=== PATIENT | female | born 1985 | race African-American/Black ===

== ENCOUNTER 2018-09-15 16:17 | Emergency (ER) | payer MEDICAID ==
[~2018-09-15] VITALS: Ht 170.2 cm; Wt 80.0 kg
[2018-09-15] MEDS ORDERED: MORPHINE SULFATE 10 MG/ML CPJ IM ONE (18:15)
[2018-09-15] MEDS ORDERED: ONDANSETRON HCL 4MG/2ML INJ IV STA (18:49)
[2018-09-15] MEDS ORDERED: KETOROLAC 30MG/ML VIAL IV STA (18:49)
[2018-09-15] MEDS ORDERED: SODIUM CHLORIDE 0.9% 1,000 ML IV ONE (18:49)
[2018-09-15] MEDS ORDERED: MORPHINE SULFATE 4 MG/ML CPJ (NOT FOR IM USE) IV STA (18:49)
[2018-09-15 19:27] LABS: BASOPHILS % 0.3 % (0.0-2.0); EOSINOPHILS % 0.1 % (0.0-5.0); HEMATOCRIT. 37.4 % (36.0-48.0); HEMOGLOBIN. 12.5 g/dL (12.0-16.0); LYMPHOCYTES % 15.6 % (20.0-50.0); MEAN CORPUSCULAR HEMOGLOBIN 29.3 pg (28.0-32.0); MEAN CORPUSCULAR VOLUME 87.9 fL (81.0-99.0); MEAN PLATELET VOLUME 7.9 fl (7.4-10.4); MONOCYTES % 6.1 % (2.0-8.0); NEUTROPHILS % 77.9 % (40.0-76.0); PLATELET 253 x1000/uL (130-400); RED BLOOD CELL COUNT 4.26 mill/uL (4.2-5.4); RED CELL DISTRIBUTION WIDTH 14.7 % (11.6-14.6)
[2018-09-15 19:33] LABS: CHLORIDE 107 mEq/L (98-107)
[2018-09-15 19:36] LABS: HCG SCREEN NEGATIVE
[2018-09-15 19:37] LABS: ETHANOL BLOOD < 10 mg/dL; PARTIAL THROMBOPLASTIN TIME 27.2 sec (23.4-31.0); PROTHROMBIN TIME 10.3 sec (9.1-11.1)
[2018-09-15] MEDS ORDERED: MORPHINE SULFATE 4 MG/ML CPJ (NOT FOR IM USE) IV ONE ×2 (21:15→21:45)
[2018-09-15] MEDS ORDERED: LORAZEPAM 2MG/ML CPJ IV ONE (21:15)
[2018-09-15] MEDS ORDERED: ONDANSETRON HCL 4MG/2ML INJ IV ONE (21:15)
[2018-09-15] MEDS ORDERED: TETANUS, DIPHTHERIA, PERTUSSIS VAC/PF 0.5ML (>7YR OLD) IM ONE (21:30)
[2018-09-15] MEDS ORDERED: BACITRACIN ZINC OINT UDPKT TOP ONE (21:30)
[2018-09-15] MEDS ORDERED: DIPHENHYDRAMINE 50MG/ML VIAL IV ONE (21:30)
[2018-09-15 22:09] VITALS: BP 131/73
== END 2018-09-15 23:29 | disposition home or self-care (01) ==
LOC: ER 16:17
DX: S83.004A Unspecified dislocation of right patella, initial encounter (principal); S89.81XA Other specified injuries of right lower leg, initial encounter; M25.561 Pain in right knee; F32.9 Major depressive disorder, single episode, unspecified; V00.831A Fall from motorized mobility scooter, initial encounter; Y93.89 Activity, other specified; Y92.9 Unspecified place or not applicable; Z90.710 Acquired absence of both cervix and uterus
CPT/HCPCS: 27560; 36415; 71045; 73552; 73560; 73590; 80053; 80320; 84703; 85025; 85610; 85730; 86850; 86900; 86901; 90471; 90715; 96372; 96374; 96375; 96376; 99284; J1200; J1885; J2060; J2270; J2405; J7030; L1830; Z7610; G0480

== ENCOUNTER 2019-07-05 21:58 | Emergency (ER) | payer MEDICAID ==
[~2019-07-05] VITALS: Ht 172.7 cm; Wt 81.0 kg
[2019-07-05] MEDS ORDERED: SODIUM CHLORIDE 0.9% 1,000 ML IV ONE (23:07)
[2019-07-05] MEDS ORDERED: ONDANSETRON HCL 4MG/2ML INJ IV STA (23:07)
[2019-07-05] MEDS ORDERED: MORPHINE SULFATE 2 MG/ML CPJ (NOT FOR IM USE) IV ONE (23:15)
[2019-07-05 23:57] LABS: BASOPHILS % 0.2 % (0.0-2.0); EOSINOPHILS % 1.7 % (0.0-5.0); HEMATOCRIT. 36.1 % (36.0-48.0); HEMOGLOBIN. 11.9 g/dL (12.0-16.0); LYMPHOCYTES % 29.6 % (20.0-50.0); MEAN CORPUSCULAR HEMOGLOBIN 27.6 pg (28.0-32.0); MEAN CORPUSCULAR VOLUME 83.5 fL (81.0-99.0); MEAN PLATELET VOLUME 8.5 fl (7.4-10.4); MONOCYTES % 9.2 % (2.0-8.0); NEUTROPHILS % 59.3 % (40.0-76.0); PLATELET 268 x1000/uL (130-400); RED BLOOD CELL COUNT 4.33 mill/uL (4.2-5.4); RED CELL DISTRIBUTION WIDTH 14.8 % (11.6-14.6)
[2019-07-06 00:02] LABS: CLARITY URINE CLEAR (CLEAR); COLOR URINE YELLOW (YELLOW); HCG SCREEN NEGATIVE; KETONES URINE NEGATIVE (NEGATIVE); LEUKOCYTE ESTERASE URINE NEGATIVE (NEGATIVE); NITRITE URINE NEGATIVE (NEGATIVE); OCCULT BLOOD URINE NEGATIVE (NEGATIVE); PROTEIN URINE NEGATIVE (NEGATIVE); SPECIFIC GRAVITY URINE 1.018 (1.005-1.030)
[2019-07-06 00:03] LABS: CHLORIDE 107 mEq/L (98-107)
[2019-07-06 02:24] VITALS: BP 118/73
== END 2019-07-06 02:40 | disposition home or self-care (01) ==
LOC: ER 21:58
DX: R10.9 Unspecified abdominal pain (principal); F32.9 Major depressive disorder, single episode, unspecified; J45.909 Unspecified asthma, uncomplicated; Z90.710 Acquired absence of both cervix and uterus
CPT/HCPCS: 36415; 74176; 80053; 81003; 83690; 84703; 85025; 96374; 96375; 99284; J2270; J2405; J7030

== ENCOUNTER 2024-07-15 15:26 | Emergency (ER) | payer MEDICAID, OTHER ==
[~2024-07-15] VITALS: Ht 165.1 cm; Wt 52.0 kg
[2024-07-15] MEDS: LACTATED RINGERS IV ONE (16:34)
[2024-07-15] MEDS: ONDANSETRON HCL 4MG/2ML INJ IV ONE (16:55)
[2024-07-15 17:31] LABS: BASOPHILS % 0.5 % (0.0-2.0); DIFFERENTIAL COMMENT 0; EOSINOPHILS % 0.4 % (0.0-5.0); HEMATOCRIT. 51.6 % (36.0-48.0); HEMOGLOBIN. 15.3 g/dL (12.0-16.0); LYMPHOCYTES % 13.4 % (20.0-50.0); MEAN CORPUSCULAR HEMOGLOBIN 28.1 pg (28.0-32.0); MEAN CORPUSCULAR HGB CONC 29.7 g/dL (31.0-37.0); MEAN CORPUSCULAR VOLUME 94.5 fL (81.0-99.0); MEAN PLATELET VOLUME 10.1 fl (7.4-10.4); MONOCYTES % 2.4 % (2.0-8.0); NEUTROPHILS % 83.3 % (40.0-76.0); PLATELET 273 x1000/uL (130-400); RED BLOOD CELL COUNT 5.47 mill/uL (4.2-5.4); RED CELL DISTRIBUTION WIDTH 15.9 % (11.6-14.6); WHITE BLOOD COUNT 12.6 x1000/uL (4.5-11.0)
[2024-07-15 17:35] LABS: CHLORIDE 100 mEq/L (98-107); POTASSIUM 4.7 mEq/L (3.5-5.1); SODIUM 136 mEq/L (136-145)
[2024-07-15 17:41] LABS: CREATININE 1.3 mg/dL (0.6-1.0); UREA NITROGEN BLOOD 14 mg/dL (9-23)
[2024-07-15 17:42] LABS: LACTIC ACID 2.4 mmol/L (0.4-2.0)
[2024-07-15 17:43] LABS: ALANINE AMINOTRANSFERASE 20 IU/L (10-49); ALBUMIN 5.1 g/dL (3.2-4.8); ASPARTATE AMINOTRANSFERASE 20 IU/L (<34); BILIRUBIN TOTAL 0.4 mg/dL (0.1-1.0)
[2024-07-15 17:47] LABS: BILIRUBIN DIRECT < 0.1 mg/dL (<=3.0); PROTEIN TOTAL 8.9 g/dL (6.0-8.3); TROPONIN I HIGH SENSITIVITY < 4 ng/L (3.0-34)
[2024-07-15 17:48] LABS: INR 0.9; PROTHROMBIN TIME 10.5 sec (9.6-11.0)
[2024-07-15 17:51] LABS: CARBON DIOXIDE < 10 mEq/L (21-32)
[2024-07-15 17:52] LABS: GLUCOSE 520 mg/dL (70-105)
[2024-07-15] MEDS ORDERED: MAGNESIUM 2 G PREMIX 50 ML IV PRN (18:00)
[2024-07-15] MEDS: CEFTRIAXONE 1GM/50ML 50 ML IV ONE (18:00)
[2024-07-15] MEDS ORDERED: KCL 20MEQ/100ML PREMIX 100 ML IV PRN (18:00)
[2024-07-15] MEDS: DEXT 5%/LACTATED RINGERS 1,000 ML IV SCH (18:00)
[2024-07-15] MEDS ORDERED: POTASSIUM CHLORIDE 40 MEQ in SODIUM CHLORIDE 0.9% 230 ML IV PRN (18:00)
[2024-07-15] MEDS ORDERED: DEXTROSE 50% WATER 50ML SYRINGE IV PRN (18:00)
[2024-07-15] MEDS ORDERED: SODIUM PHOSPHATE 15 MMOL in SODIUM CHLORIDE 0.9% 245 ML IV PRN (18:00)
[2024-07-15] MEDS ORDERED: INSULIN REGULAR (DRIP) 100 UNITS in SODIUM CHLORIDE 0.9% 99 ML IV SCH (18:00)
[2024-07-15] MEDS ORDERED: BLOOD SUGAR DIAGNOSTIC STRIP TEST PRN (18:00)
[2024-07-15] MEDS: BLOOD SUGAR DIAGNOSTIC STRIP TEST SCH (18:11)
[2024-07-15] MEDS: LACTATED RINGERS 1,000 ML IV SCH (18:16)
[2024-07-15] MEDS: INSULIN REGULAR (HUMULIN R) 1000UNITS/10ML VIAL IV ONE (18:17)
[2024-07-15] MEDS: INSULIN REGULAR 100U/100ML PMX 100 ML IV SCH (18:31)
[2024-07-16 02:33] LABS: BASOPHILS % 0.3 % (0.0-2.0); EOSINOPHILS % 0.1 % (0.0-5.0); HEMATOCRIT. 42.7 % (36.0-48.0); HEMOGLOBIN. 13.8 g/dL (12.0-16.0); LYMPHOCYTES % 17.1 % (20.0-50.0); MEAN CORPUSCULAR HEMOGLOBIN 28.8 pg (28.0-32.0); MEAN CORPUSCULAR HGB CONC 32.3 g/dL (31.0-37.0); MEAN CORPUSCULAR VOLUME 89.3 fL (81.0-99.0); MEAN PLATELET VOLUME 9.6 fl (7.4-10.4); MONOCYTES % 8.8 % (2.0-8.0); NEUTROPHILS % 73.7 % (40.0-76.0); PLATELET 250 x1000/uL (130-400); RED BLOOD CELL COUNT 4.78 mill/uL (4.2-5.4); RED CELL DISTRIBUTION WIDTH 14.6 % (11.6-14.6); WHITE BLOOD COUNT 15.1 x1000/uL (4.5-11.0)
[2024-07-16 03:02] LABS: CHLORIDE 111 mEq/L (98-107); POTASSIUM 4.3 mEq/L (3.5-5.1); SODIUM 141 mEq/L (136-145)
[2024-07-16 03:03] LABS: CALCIUM 9.4 mg/dL (8.7-10.4); CARBON DIOXIDE 16 mEq/L (21-32)
[2024-07-16 03:08] LABS: GLUCOSE 249 mg/dL (70-105)
[2024-07-16 03:09] LABS: UREA NITROGEN BLOOD 13 mg/dL (9-23)
[2024-07-16 03:11] LABS: PHOSPHORUS 2.8 mg/dL (2.5-4.9)
[2024-07-16] MEDS: MAGNESIUM 2 G PREMIX 50 ML IV PRN (05:11)
[2024-07-16 13:00] VITALS: TEMP 37.00296
[2024-07-16] MEDS: PANTOPRAZOLE SODIUM 40 MG/VIAL IV SCH (14:09)
[2024-07-16 14:48] LABS: CHLORIDE 108 mEq/L (98-107); POTASSIUM 3.4 mEq/L (3.5-5.1); SODIUM 140 mEq/L (136-145)
[2024-07-16 14:49] LABS: CALCIUM 8.8 mg/dL (8.7-10.4); CARBON DIOXIDE 25 mEq/L (21-32)
[2024-07-16 14:54] LABS: CREATININE 0.8 mg/dL (0.6-1.0); GLUCOSE 213 mg/dL (70-105); UREA NITROGEN BLOOD 12 mg/dL (9-23)
[2024-07-16] MEDS ORDERED: DEXTROSE 50% WATER 50ML SYRINGE IV PRN (16:00)
[2024-07-16] MEDS: BLOOD SUGAR DIAGNOSTIC STRIP TEST SCH (16:38)
[2024-07-16] MEDS: INSULIN GLARGINE 100 UNITS/ML SUBCUT SCH (16:43)
[2024-07-16] MEDS: INSULIN LISPRO 100 UNITS/ML SUBCUT SCH (16:48)
[2024-07-16 16:49] VITALS: RESP 16; O2SAT 100
[2024-07-16 17:25] VITALS: BP 94/57; PULSE 84; TEMP 98.7; O2SAT 100
== END 2024-07-16 17:47 | disposition home or self-care (01) ==
LOC: ER 15:26 → EDBEDREQ 16:24 → EDBEDREQTM 18:15 → EDBEDREQ 18:15 → ER 07-16 17:47
DX: A41.9 Sepsis, unspecified organism (principal); R65.20 Severe sepsis without septic shock; R53.1 Weakness; J45.909 Unspecified asthma, uncomplicated; N17.9 Acute kidney failure, unspecified; Z90.710 Acquired absence of both cervix and uterus; Z79.4 Long term (current) use of insulin
CPT/HCPCS: 80076; 80048 ×2; 82010; 82962 ×2; 83880; 83605 ×2; 83690; 83735 ×2; 83930; 85025 ×2; 85610; 87040; 84484; 36415 ×2; 84145; 71045; 93005; 99291; 84100; J1815 ×4; J2405; J7120; Z7610; J3475; J2470; J7121